=== PATIENT | female | born 1965 | race Caucasian/White ===

== ENCOUNTER 2017-03-19 16:16 | Emergency (ER) | payer BC ==
[~2017-03-19] VITALS: Ht 162.6 cm; Wt 100.4 kg
[~2017-03-19 16:16] MED LIST: ADVAIR 100/501 DISK IH; ADVAIR 250-501 EACH IH; ADVAIR 250/501 DISK IH; ASPIRIN EC325 MG PO; ATARAX,VISTARIL25 MG PO; BACTRIM,SEPT1 TABLET PO; BREO ELLIPTA I1 EACH IH; CELEXA40 MG PO; CHERATUSSIN AC473 ML PO; CRESTOR; CRESTOR10 MG PO; CRESTOR40 MG PO; LEVAQUIN750 MG PO; LO-DOSE ASPIRIN81 M1 PO; Levaquin PO; MEDROL DOSEPAK4 MG PO; METFORMIN HCL500 M1 PO; METFORMIN HCL500 MG PO; MULTIVITAMIN1 EAC2 PO; NORCO 5/3251 TABLET PO; PREDNISONE10 MG PO; PREVACID30 MG PO; PROVENTIL17 GM IH; Prevacid PO; Proventil,Ventolin H IH; TESSALON PERLE100 MG PO; VENTOLIN HFA18 GM IH; VICODIN 5-3001 EACH PO; ZITHROMAX250 MG PO; celeXA PO; predniSONE PO
[2017-03-19] MEDS ORDERED: NAPROXEN500 MG PO (18:14)
[2017-03-19 18:28] VITALS: BP 145/67
== END 2017-03-19 18:29 | disposition home or self-care (01) ==
LOC: EME 16:16
DX: M77.12 Lateral epicondylitis, left elbow (principal); J44.9 Chronic obstructive pulmonary disease, unspecified; E78.00 Pure hypercholesterolemia, unspecified; E11.9 Type 2 diabetes mellitus without complications; Z79.84 Long term (current) use of oral hypoglycemic drugs; Z79.82 Long term (current) use of aspirin; Z87.891 Personal history of nicotine dependence
CPT/HCPCS: 73080; 99281; 99283

== ENCOUNTER 2017-10-21 18:31 | Emergency (ER) | payer BC ==
[~2017-10-21] VITALS: Ht 162.6 cm; Wt 104.4 kg
[~2017-10-21 18:31] MED LIST changes: +NAPROXEN500 MG PO
[2017-10-21 22:06] VITALS: BP 124/82
== END 2017-10-21 22:07 | disposition home or self-care (01) ==
LOC: EME 18:31
DX: M79.645 Pain in left finger(s) (principal); Z88.0 Allergy status to penicillin; Z88.5 Allergy status to narcotic agent
CPT/HCPCS: 73140; 99281; 99283